=== PATIENT | female | born 1970 | race Caucasian/White ===

== ENCOUNTER 2016-07-29 13:07 | Emergency (ER) | payer MEDICAID ==
[2016-07-29 13:13] VITALS: RESP 16; TEMP 98
[2016-07-29] MEDS ORDERED: Sodium Chloride 0.9% 1,000 ML IV STA (13:23)
--- NOTE | 2016-07-29 13:37 | ED PDOC ---
HPI: Psych/Substance Abuse Time Seen by Provider: 07/29/16 13:16 Chief Complaint (Nursing): Substance Abuse Chief Complaint (Provider): Substance Abuse History Per: Patient Current Symptoms Are (Timing): Still Present Additional Complaint(s): Oral White is a 45 year old female brought in by the police department for the evaluation of a possible substance abuse. Patient was found staggering in the streets and noted with slurred speech. Admits to taking three tablets of Ativan 2mg recently but denies other ingestion. Past medical history is unknown and ROS was unattainable. PMD: None provided Past Medical History Reviewed: Historical Data, Nursing Documentation, Vital Signs Vital Signs: Last Vital Signs Temp 98.0 F 07/29/16 13:11 Pulse 124 H 07/29/16 13:11 Resp 16 07/29/16 13:11 BP 126/81 07/29/16 13:11 Pulse Ox 100 07/29/16 13:11 - Medical History PMH: Anxiety, Migraine, Seizures Denies: Diabetes, Hepatitis, HIV, HTN, Sexually Transmitted Disease - Surgical History Surgical History: Hernia Repair, - Family History Family History: States: Unknown Family Hx - Immunization History Hx Tetanus Toxoid Vaccination: No Hx Influenza Vaccination: No Hx Pneumococcal Vaccination: No - Home Medications Home Medications: Ambulatory Orders Medication Instructions Recorded Fioricet 05/09/15 Naproxen [Naprosyn] 1 tab PO BID PRN #25 tab 05/09/15 Seroquel 05/09/15 TEGretol 05/09/15 Xanax 05/09/15 Ciprofloxacin [Cipro] 1 tab PO BID #14 tab 05/12/15 metroNIDAZOLE [Flagyl] 500 mg PO BID #14 tab 05/12/15 - Allergies Allergies/Adverse Reactions: Allergies Allergy/AdvReac Type Severity Reaction Status Date / Time No Known Allergies Allergy Verified 05/12/15 08:24 Review of Systems Review Of Systems: ROS cannot be obtained secondary to pt's inabilty to answer questions. Physical Exam - Reviewed Nursing Documentation Reviewed: Yes Vital Signs Reviewed: Yes - Physical Exam Appears: Positive for: Well, Non-toxic, No Acute Distress Head Exam: Positive for: ATRAUMATIC, NORMAL INSPECTION, NORMOCEPHALIC Skin: Positive for: Normal Color, Warm, Dry Eye Exam: Positive for: Normal appearance, PERRL ENT: Positive for: Normal ENT Inspection Neck: Positive for: Normal, Painless ROM, Supple Cardiovascular/Chest: Positive for: Regular Rate, Rhythm. Negative for: Murmur Respiratory: Positive for: Normal Breath Sounds. Negative for: Respiratory Distress Gastrointestinal/Abdominal: Positive for: Normal Exam, Soft. Negative for: Tenderness Back: Positive for: Normal Inspection Extremity: Positive for: Normal ROM. Negative for: Deformity Neurologic/Psych: Positive for: Alert, Oriented (x1), Other (slurred speech). Negative for: Motor/Sensory Deficits (No focal motor deficits.) - Laboratory Results Result Diagrams: 07/29/16 13:50 07/29/16 13:50 - ECG O2 Sat by Pulse Oximetry: 100 (RA) Pulse Ox Interpretation: Normal Medical Decision Making Medical Decision Making: Time: 13:11 Initial Impression: possible substance abuse Initial Plan: * EKG * Labs * Acetaminophen * Alcohol Serum * Urine drug screen * Urine dipstick * Urine * Salicylate * PT * NS 1,000ml IV per 100 mls/hr * 1:1 Observation * Re-evaluation Scribe Attestation: Documented by~Roma White, acting as a scribe for Austin Pierre MD. Provider Scribe Attestation: All medical record entries made by the Scribe were at my direction and personally dictated by me. I have reviewed the chart and agree that the record accurately reflects my personal performance of the history, physical exam, medical decision making, and the department course for this patient. I have also personally directed, reviewed, and agree with the discharge instructions and disposition. Disposition - Clinical Impression Clinical Impression: Substance abuse - Patient ED Disposition Is Patient to be Admitted: Transfer of Care - Disposition Disposition: Transfer of Care Disposition Time: 14:55 Condition: FAIR Patient Signed Over To: Nasima Oliver
[2016-07-29 14:00] LABS: BASO # 0.1 K/uL (0.0-0.2); BASO % 0.5 % (0.0-2.0); EOS # 0.1 K/uL (0.0-0.7); EOS % 0.5 % (0.0-4.0); HEMATOCRIT 41.1 % (34.0-47.0); LYMPH # 1.9 K/uL (1.0-4.3); LYMPH % 17.5 % (20.0-40.0); MEAN CORPUSCULAR HEMOGLOBIN 30.8 pg (27.0-31.0); MEAN CORPUSCULAR HGB CONC 33.9 g/dL (33.0-37.0); MONO # 0.5 K/uL (0.0-0.8); MONO % 4.7 % (0.0-10.0); NEUT # 8.4 K/uL (1.8-7.0); NEUT % 76.8 % (50.0-75.0); RED CELL DISTRIBUTION WIDTH 13.7 % (11.5-14.5); WHITE BLOOD COUNT 10.9 K/uL (4.8-10.8)
[2016-07-29 14:11] LABS: ALB/GLOB RATIO 1.2 (1.0-2.1); ALCOHOL SERUM < 10 mg/dl (0-10); ALKALINE PHOSPHATASE 84 U/L (38-126); ALT/SGPT 34 U/L (9-52); AST/SGOT 23 U/L (14-36); BILIRUBIN,TOTAL 0.4 mg/dl (0.2-1.3); BLOOD UREA NITROGEN 9 mg/dl (7-17); CALCIUM 9.2 mg/dL (8.4-10.2); CARBON DIOXIDE 21 mmol/L (22-30); CHLORIDE 108 mmol/L (98-107); GFR AFRICAN-AMERICAN > 60; GLUCOSE,RANDOM 115 mg/dL (65-105); POTASSIUM 4.1 MMOL/L (3.6-5.0); SODIUM 141 mmol/l (132-148); TOTAL PROTEIN 8.4 G/DL (6.3-8.2)
--- NOTE | 2016-07-29 15:23 | ED PDOC ---
- Laboratory Results Result Diagrams: 07/29/16 13:50 07/29/16 13:50 - ECG O2 Sat by Pulse Oximetry: 100 (RA) Pulse Ox Interpretation: Normal Medical Decision Making Medical Decision Makin:00 Patient was signed out to me by Austin Pierre MD. Pending clinical sobriety and discharge into police custody. 16:25 Urine drug screening shows patient is positive for marijuana, benzos, and PCP. Patient is in stable condition, diagnosed with polysubstance abuse, and will be discharged to police custody. Patient is in police custody because they found that she was in possession of marijuana. pt alert and oriented, stable gait vitals stable Scribe Attestation: Documented by~Roma White, acting as a scribe for Nasima Oliver MD. Provider Scribe Attestation: All medical record entries made by the Scribe were at my direction and personally dictated by me. I have reviewed the chart and agree that the record accurately reflects my personal performance of the history, physical exam, medical decision making, and the department course for this patient. I have also personally directed, reviewed, and agree with the discharge instructions and disposition. Disposition Counseled Patient/Family Regarding: Studies Performed, Diagnosis, Need For Followup - Clinical Impression Clinical Impression: Substance abuse, Polysubstance abuse - POA Present On Arrival: None - Disposition Disposition: Routine/Home Disposition Time: 16:25 Condition: STABLE Additional Instructions: follow up with your primary doctor in 1-2 days return to the ED with any worsening or concerning symptoms. you are medically and psychiatrically cleared for discharge to police custody Instructions: Polysubstance Abuse (ED)
[2016-07-29 16:46] VITALS: BP 122/84; PULSE 89
[2016-07-29 22:56] VITALS: O2SAT 100
--- NOTE | 2016-07-30 19:26 | CARD ---
APPROVED REPORT EKG Measurement Heart [id number] <Conclusion> Sinus tachycardia Otherwise normal ECG
== END 2016-07-29 16:51 | disposition home or self-care (01) ==
LOC: H.ER 13:07
DX: F19.10 Other psychoactive substance abuse, uncomplicated (principal); Z02.89 Encounter for other administrative examinations